=== PATIENT | female | born 1995 | race African-American/Black ===

== ENCOUNTER 2020-01-29 01:38 | Emergency (ER) | payer OTHER ==
[~2020-01-29] VITALS: Ht 157.5 cm; Wt 83.9 kg
[2020-01-29] MEDS ORDERED: PREN1TAB11 PO (01:50)
[2020-01-29] MEDS ORDERED: NS 1,000 ML IV ONE (03:00)
[2020-01-29 03:36] LABS: BASO % 0.3 % (0.0-1.0); EOS # 0.1 10^3/uL (0.0-0.5); EOS % 1.1 % (0.0-3.0); HEMATOCRIT 36.7 % (36.0-47.0); HEMOGLOBIN 12.1 g/dl (12.0-15.5); LYMPH # 2.2 10^3/uL (1.5-5.0); LYMPH % 20.6 % (24.0-44.0); MEAN CORPUSCULAR HEMOGLOBIN 30.7 pg (27.0-33.0); MEAN CORPUSCULAR VOLUME 93.1 fl (80.0-96.0); MONO # 0.6 10^3/uL (0.0-0.8); MONO % 5.2 % (0.0-5.0); NEUTROPHILS # 7.7 10^3/uL (1.5-8.5); NEUTROPHILS % 72.4 % (36.0-66.0); PLATELET COUNT, AUTOMATED 357 10^3/uL (150-450); RED BLOOD COUNT 3.94 10^6/uL (4.00-5.40); WHITE BLOOD COUNT 10.7 10^3/uL (4.0-10.0)
[2020-01-29 04:24] LABS: ALBUMIN 3.2 GM/DL (3.2-5.2); ALT/SGPT 22 U/L (12-78); BILIRUBIN,DIRECT < 0.1 MG/DL (0.0-0.2); BILIRUBIN,TOTAL 0.1 MG/DL (0.2-1.0); BLOOD UREA NITROGEN 7 MG/DL (7-18); CALCIUM LEVEL 9.2 MG/DL (8.5-10.1); CARBON DIOXIDE LEVEL 27 MEQ/L (21-32); CHLORIDE LEVEL 106 MEQ/L (98-107); GLOMERULAR FILTRATION RATE > 60.0 (>60); GLUCOSE, FASTING 90 MG/DL (70-100); HCG, SERUM QUANTITATIVE 19826 MIU/ML; LIPASE 121 U/L (73-393); POTASSIUM SERUM 4.1 MEQ/L (3.5-5.1); SODIUM LEVEL 137 MEQ/L (136-145); TOTAL PROTEIN 7.3 GM/DL (6.4-8.2)
--- NOTE | 2020-01-29 04:46 | REPVR ---
PROCEDURE INFORMATION: Exam: US Abdomen, Limited; Right Upper Quadrant Exam date and time: 01/29/2020 4:16 AM Age: 24 years old Clinical indication: Abdominal pain; Epigastric; ; Additional info: Abd pain, 16 wks preg TECHNIQUE: Imaging protocol: US abdomen. Real time ultrasound with image documentation. Limited exam focused on the right upper quadrant. COMPARISON: No relevant prior studies available. FINDINGS: Liver: The liver demonstrates no focal defects. Gallbladder: The gallbladder demonstrates no stones and no wall thickening measuring 2-3 mm. There is a negative sono Wilson's sign. Common bile duct: The CBD measures 5 mm. Pancreas: Limited visualization of the pancreas demonstrates no gross abnormalities. Portions of the head and tail are not well seen. Right kidney: The right kidney is normal measuring 10.5 cm with no hydronephrosis. IMPRESSION: Negative right upper quadrant sonogram. Electronically signed by: Deon Acevedo On 01/29/2020 04:46:26 AM
--- NOTE | 2020-01-29 04:48 | REPVR ---
PROCEDURE INFORMATION: Exam: US , Limited Exam date and time: 01/29/2020 4:16 AM Age: 24 years old Clinical indication: complicated by abdominal or pelvic pain; Right upper quadrant; Second trimester; Gestational age or lmp: 16w 1d; ; Additional info: Abd pain, 16 wks preg TECHNIQUE: Imaging protocol: Real-time ultrasound of the maternal uterus with image documentation. Exam focused on the clinical indication. COMPARISON: No relevant prior studies available. FINDINGS: Gestation: Single intrauterine fetus. heart rate: heartbeat of 146 bpm. Presentation: Cephalic presentation. Placenta: Fundal placenta. ANATOMICAL SURVEY: anatomy: The stomach and bladder are normal. MATERNAL: Uterus: Numerous uterine fibroids are noted with the largest visualized measuring 6.6 x 5.4 x 5.3 cm. IMPRESSION: 1. Single live intrauterine fetus in cephalic presentation. 2. Numerous uterine fibroids are noted measuring up to 6.6 x 5.4 x 5.3 cm. 3. Fundal placenta. Electronically signed by: Deon Acevedo On 01/29/2020 04:48:29 AM
[2020-01-29 05:58] VITALS: BP 115/78
--- NOTE | 2020-01-31 11:41 | ED PDOC ---
Post-Departure Follow-Up [facility] faxed formal report of ob us for fu France Tong MD Jan 31, 2020 11:41
== END 2020-01-29 06:07 | disposition home or self-care (01) ==
LOC: EDBD 01:38 → M ED 01:38
DX: O26.892 Other specified pregnancy related conditions, second trimester (principal); Z3A.16 16 weeks gestation of pregnancy; O34.12 Maternal care for benign tumor of corpus uteri, second trimester; O43.892 Other placental disorders, second trimester; Z79.899 Other long term (current) drug therapy

== ENCOUNTER → 2020-05-04 | Outpatient (CLI) | payer OTHER ==
[~2020-05-04] MED LIST: PREN1TAB11 PO
--- NOTE | 2020-05-04 10:48 | REP ---
INDICATION: FIBROID UTERUS; GROWTH SCAN COMPARISON: 01/29/2020 TECHNIQUE: Transabdominal obstetrical ultrasound with color Doppler evaluation. FINDINGS: Examination demonstrates a single live intrauterine in breech presentation. motion is identified by technologist. Placenta is noted posterior/fundal and grade 2 without evidence for placenta previa or abruption. Amniotic fluid volume is normal. Cervix measures 4.3 cm in length and appears closed. Known uterine fibroids measuring up to 6.6 cm maximal diameter noted. Gestational age by LMP twenty-nine weeks 6 days with CYNTHIA 07/14/2020. Gestational age by current measurements 30 weeks 5 days with CYNTHIA 07/08/2020. FHR equals 160 beats per minute. CODY: 14.4 cm (8.8-23.7) Estimated weight 1600 grams (54thpercentile). Umbilical artery SD ratio: 2.90 (1.91-4.01) IMPRESSION: Single live intrauterine in breech presentation demonstrating appropriate estimated weight and growth. <Electronically signed by Robert Rodas > 05/04/20 [id number]
== END ==
LOC: M RAD 09:44
PROVIDERS: ATTEND Registered Nurse Maternal Newborn
DX: Z34.83 Encounter for supervision of other normal pregnancy, third trimester (principal); Z3A.28 28 weeks gestation of pregnancy

== ENCOUNTER 2020-07-10 07:31 | Inpatient (IN) | payer OTHER ==
[2020-07-10] VITALS (7 sets, daily range): BP systolic 101–129; BP diastolic 55–79
[~2020-07-10] VITALS: Ht 157.5 cm; Wt 98.9 kg
[2020-07-10] MEDS ORDERED: ceFAZolin SOD 2 GM in IV 1 EA IV ONE (08:20)
[2020-07-10] MEDS ORDERED: LR 500 ML IV ONE (08:20)
[2020-07-10] MEDS ORDERED: BICITRA 30ML SOLN UDC PO ONE (08:20)
[2020-07-10 08:44] LABS: HEMATOCRIT 37.6 % (36.0-47.0); HEMOGLOBIN 12.3 g/dl (12.0-15.5); MEAN CORPUSCULAR HEMOGLOBIN 31.3 pg (27.0-33.0); MEAN CORPUSCULAR HGB CONC 32.7 g/dl (32.0-36.5); MEAN CORPUSCULAR VOLUME 95.7 fl (80.0-96.0); PLATELET COUNT, AUTOMATED 294 10^3/uL (150-450); RED BLOOD COUNT 3.93 10^6/uL (4.00-5.40); WHITE BLOOD COUNT 8.4 10^3/uL (4.0-10.0)
[2020-07-10] MEDS ORDERED: TRANEXAMIC ACID INJection 1,000 MG in NS 100 ML IV ONE (08:50)
[2020-07-10] MEDS ORDERED: BUPIVACAINE HCL 0.25% 10ML VIAL INFIL ONE (08:50)
[2020-07-10] MEDS ORDERED: OXYTOCIN INJ 10 UNITS/ML VIAL (J2590) IV ONE (08:50)
[2020-07-10] MEDS ORDERED: TRANEXAMIC ACID 100 MG/ML 10ML VIAL As Ordered ONE (09:08)
[2020-07-10] MEDS ORDERED: dexameTHASONE 4 MG/ML 1ML VIAL (J1100 PER 1MG) As Ordered ONE (09:14)
[2020-07-10] MEDS ORDERED: ONDANSETRON 4MG/2ML VIAL As Ordered ONE (09:14)
[2020-07-10] MEDS ORDERED: OXYTOCIN INJ 10 UNITS/ML VIAL (J2590) As Ordered ONE ×2 (09:14→10:13)
[2020-07-10] MEDS ORDERED: KETOROLAC 60MG 2ML VIAL As Ordered ONE (09:14)
[2020-07-10] MEDS ORDERED: MORPHINE PRES-FREE INJ 10 MG/10 ML VIAL (J2274) As Ordered ONE (09:21)
[2020-07-10] MEDS ORDERED: METOCLOPRAMIDE INJ 10MG/2ML VIAL (J2765 PER 1) IV PRN (10:03)
[2020-07-10] MEDS ORDERED: ONDANSETRON 4MG/2ML VIAL IV PRN ×2 (10:03→11:45)
[2020-07-10] MEDS ORDERED: NALOXONE INJ 0.4MG/1ML VIAL (J2310 PER 1MG) IV PRN ×2 (10:03)
[2020-07-10] MEDS ORDERED: diphenhydrAMINE 50MG/ML VIAL (J1200) IV PRN (10:03)
[2020-07-10] MEDS ORDERED: NALBUPHINE HCL 10 MG/ML AMP (J2300) IV PRN (10:03)
[2020-07-10] MEDS ORDERED: ePHEDrine SULFATE 25 MG/5 ML(5MG/ML) SYRINGE As Ordered ONE (10:07)
[2020-07-10] MEDS ORDERED: PHENYLephrine 500MCG 5ML (100MCG/ML) SYRINGE As Ordered ONE (10:08)
[2020-07-10 10:39] LABS: CORD GAS ABE A -5.1; CORD GAS HCO3 A 22.2 MEQ/L; CORD GAS O2 SAT A 90.3 %; CORD GAS PCO2 A 50.6 mmHg; CORD GAS PH A 7.261 UNITS; CORD GAS PO2 A 46.9 mmHg; CORD GAS SBC A 20.1 MEQ/L; CORD GAS TCO2 A 23.8 MEQ/L
[2020-07-10] MEDS ORDERED: METOCLOPRAMIDE INJ 10MG/2ML VIAL (J2765 PER 1) As Ordered ONE (10:39)
[2020-07-10 10:41] LABS: CORD GAS ABE V -1.4; CORD GAS HCO3 V 24.4 MEQ/L; CORD GAS O2 SAT V 93.9 %; CORD GAS PCO2 V 45.5 mmHg; CORD GAS PH V 7.348 UNITS; CORD GAS PO2 V 52.8 mmHg; CORD GAS SBC V 23.2 MEQ/L; CORD GAS TCO2 V 25.8 MEQ/L
[2020-07-10] MEDS ORDERED: OXYTOCIN 30 UNITS IN 0.9% NaCl 500ML IV BAG (J2590) As Ordered ONE (11:02)
[2020-07-10] MEDS ORDERED: DOCUSATE SODIUM 100MG CAPSULE PO PRN (11:10)
[2020-07-10] MEDS ORDERED: SIMETHICONE 80MG CHEW TAB PO PRN (11:10)
[2020-07-10] MEDS ORDERED: MOM 30ML SUSPENSION UDC PO PRN (11:10)
[2020-07-10] MEDS ORDERED: ACETAMINOPHEN 500 MG TAB PO PRN (11:10)
[2020-07-10] MEDS ORDERED: LR 1,000 ML IV SCH (11:10)
[2020-07-10] MEDS ORDERED: oxyCODONE 5MG TAB PO PRN ×2 (11:10→11:45)
[2020-07-10] MEDS ORDERED: PERCOCET 5MG/325MG TAB PO PRN (11:10)
--- NOTE | 2020-07-10 11:25 | ROOPDOC ---
[facility] Report Of Operation Report of Operation DATE OF PROCEDURE: 07/10/20 PREPROCEDURE DIAGNOSES: breech presentation, fibroid uterus, obesity POSTPROCEDURE DIAGNOSES: same PROCEDURE: primary delivery SURGEON: Ivy Salazar DO [facility] PILOT: Shira Scott CNM ANESTHESIA: epdural ESTIMATED BLOOD LOSS: Approximately 600 mL. COMPLICATIONS: none REMARKS: none PROCEDURE NOTE: The risks, benefits, and alternatives of the proceudre were discussed and written consent was obtained. The patient was taken to the OR where an epidural was placed. She was then positioned supine with a left tilt with her arms out. doptones were obtained. 2g of ancef was administered for antibiotic prophylaxis and bicitra for GI prophylaxis. SCDs were placed for DVT prophylaxis. A nunez was placed in the bladder. The abdomen was prepped and draped in a sterile fashion. The anesthesia was tested to be adequate. A final time out was performed. A pfannensteil incision was made with a scalpel and carried to the fascia. The fascia was scored and extended in a cirvilinear fashion with the curved mak scissors. The superior edge was elevated with sravanthi clamps and the muscles dissected from the fascia with blunt dissection and a scalpel. The procedure was repeated on the inferior edge. The muscles were and the peritoneum entered bluntly. The lower uterine segment was identified and a bladder flap was made with the metzambum scissors. The bladder blade was then placed. Pedunculated uterine fibroids could be palpated starting mid uterus to the fundus. A transverse hysterotomy was made in the lower uterine segment and extended bluntly. With fingers on the ASISs the baby was delivered in breech presentation. The Pinard maneuver was used to deliver the legs and [place] for the arms. The head was delivered via the Prauge maneuver. The baby had spontaneous movement, cry, and good tone. Warm dry stimulation was performed. The cord clamping was delayed 60s. It was then clamped and cut and the baby given to the pediatric team. Cord gasses and blood were obtained. TXA and 30U of pitocin were given for prevention for hemorrhage due to patient risk factors. The placenta was delivered via guy downward traction and was confirmed to be in-tact. The uterus was exteriorized and with a moist lap cleaned of debris. The hysterotomy was closed in a running locking fashion with 0-monocryl. A horizontal imbricating layer was also performed with 0-monocryl. The incision w as hemostatic on completion. The uterus had 10 pedunculated fibroids starting at the mid uterus to the funds as well as multiple subcentimeter subserosal fibroids. There was a small adhesion from the abdominal wall to a right pedunculated fibroid that was lysed with bovie cautery. The posterior cul-de-sac was cleaned of clots with a moist lap and pool suction. The hysterotomy was re-inspected to be hemostatic and the uterus was replaced. The gutters were cleansed with a moist lap and the hysterotomy remained hemostatic. The abdominal peritoneum was closed wth 0-vicryl in a running fashion. The muscles were inspected to be hemostatic. The fascia was closed with 0-vicryl in a running fashion and palpated to have no defects. The incision was irrigated and 0.25% marcaine 10cc injected at the level of the fascia. The sucutaneous layer was hemostatic with the aid of bovie cautery. 2-0 vicryl was used to close the subcutaneous tissue in a running fashion. The skin was closed with 3-0 monocryl and secured with dermabond. A uterine sweep was performed and bleeding was scant. The fundus was firm. The sponge, lap, and needle counts were correct x2 and there were no complications. The patient was transferred to recovery in stable condition. IVY SALAZAR DO July 10, 2020 11:25
[2020-07-10] MEDS ORDERED: fentaNYL 100 MCG/2 ML INJECTION (J3010) IV PRN (11:45)
[2020-07-10] MEDS: PRENATAL VITAMINS CHEWABLE TABLET PO SCH (14:02)
[2020-07-10] MEDS: ACETAMINOPHEN TAB 650MG DOSE (2X325MG) PO PRN (23:39)
[2020-07-11 02:00] VITALS: BP 133/72
[2020-07-11] MEDS: ACETAMINOPHEN TAB 650MG DOSE (2X325MG) PO PRN ×2 (05:36→11:58)
[2020-07-11 06:00] VITALS: BP 118/60
--- NOTE | 2020-07-11 06:48 | IPNPDOC ---
Progress Note Date of Service: July 11, 2020 Day#: 1 Progress Note SUBJECT: Ms. Purdy is a 24yo s/p primary for breech presentation and with a multifibroid uterus (pedunculated). She is currently post-operative day 1. She has been ambulating, voiding spontaneously without issue and tolerating regular diet. Breast feeding without issue. Reports lochia is like a normal period. Patient is ambulating well. Reports some cramping with . Denies any pain. Voiding and passing flatus without difficulty. OB PROBLEMS LIST: 1. obesity, pre- BMI 32 2. varicella non-immune 3. fibroid uterus, multiple pedunculated and subserosal 4. mild intermittent asthma and seasonal allergies OBJECTIVE: VITAL SIGNS: Within normal limits, afebrile. Alert and oriented times three. No increased WOB Heart rate: non-tachycardic Abdomen: Fundus firm at U-2 (fibroid can although be palpated as well at +2). Soft, NTTP. Pfannensteil incision is clean dry and well approximated with dermabond. [Minimal] lochia. ASSESSMENT: Ms. Purdy is a 24yo s/p primary for breech presentation and with a multifibroid uterus (pedunculated). She is currently post-operative day 1. Vitals within normal limits, afebrile, hemodynamically stable with no evidence of infection. Meeting all post-operative goals. PLAN: 1. Discharge to home likely tomorrow. 2. Tylenol and Motrin for pain. Oxycodone for breakthrough. 3. Encourage breast feeding and ambulation. 4. Undecided contraception, educated on methods, educated on close interval . 5. Routine PP visit in 2 and 6 weeks in clinic. 6. Discussed return precautions and activity limitations at length. 7. Recommended varicella vaccination. 8. Discussed fibroids, patient asked if she should have them removed. I expl ained that if they are bothersome to her (pain, discomfort, heavy periods, etc) then she could have surgery for removal. I explained that I would perform this surgery robotically with fibroid removal via a posterior colpotomy vs an open abdominal procedure. I also explained that fibroids can although form again after surgery, so if they are not too bothersome to her I would recommend waiting until childbearing complete and performing a hysterectomy which could be done minimally invasively, ie robotically. She could suppress them some in the interm with hormonal management. If they are not bothersome to her, and are not rapidly growing or showing other concerning signs of something like leiom yosarcoma or causing compromising compression in the abdomen, she could also leave them be and they will regress some in menopause. VS, I&O, 24H, Fishbone Vital Signs/I&O Vital Signs Date Time Temp Pulse Resp B/P (MAP) Pulse Ox O2 Delivery O2 Flow Rate FiO2 07/11/20 06:00 99.7 91 20 118/60 (79) 97 Room Air I&O- Last 24 Hours up to 6 AM 07/11/20 06:00 Intake Total 760 ml Output Total 1875 ml Balance -1115 ml Laboratory Data 24H LABS Laboratory Tests 2 07/10/20 08:30: Nucleated Red Blood Cells % (auto) 0.0, Syphilis Serology NONREACTIVE 07/10/20 10:31: Cord Arterial Blood pH 7.261, Cord Arterial Blood PCO2 50.6, Cord Arterial Blood PO2 46.9, Cord Arterial Blood HCO3 22.2, Cord Arterial Blood Total CO2 23.8, Cord Arterial Blood Base Excess -5.1, Cord Arterial Base Excess (Standard 20.1, Cord Arterial Bld Oxygen Saturation 90.3, Cord Venous Blood pH 7.348, Cord Venous Blood PCO2 45.5, Cord Venous Blood PO2 52.8, Cord Venous Blood HCO3 24.4, Cord Venous Blood Total CO2 25.8, Cord Venous Base Excess (Actual) -1.4, Cord Venous Base Excess (Standard) 23.2, Cord Venous Blood Oxygen Saturation 93.9 CBC/BMP Laboratory Tests 07/10/20 08:30 IVY SALAZAR DO July 11, 2020 06:48
--- NOTE | 2020-07-11 06:49 | OBDS ---
[facility] Obstetrical Discharge Sum. A/P, Post Course List any complications Ms. Purdy is a 24yo s/p primary for breech presentation and with a multifibroid uterus (pedunculated). 4150g, EBL 600, urine 100, APGARS 9/9. She has been ambulating, voiding spontaneously without issue and tolerating regular diet. Breast feeding without issue. Reports lochia is like a normal period. Patient is ambulating well. Reports some cramping with . Denies any pain. Voiding and passing flatus without difficulty. Vitals within normal limits, afebrile, hemodynamically stable with no evidence of infection. Meeting all post-operative goals. OB PROBLEMS LIST: 1. obesity, pre- BMI 32 2. varicella non-immune 3. fibroid uterus, multiple pedunculated and subserosal 4. mild intermittent asthma and seasonal allergies PLAN: 1. Discharge to home. 2. Tylenol and Motrin for pain. Oxycodone for breakthrough. 3. Encourage breast feeding and ambulation. 4. Undecided contraception, educated on methods, educated on close interval . 5. Routine PP visit in 2 and 6 weeks in clinic. 6. Discussed return precautions and activity limitations at length. 7. Recommended varicella vaccination. 8. Discussed fibroids, patient asked if she should have them removed. I explained that if they are bothersome to her (pain, discomfort, heavy periods, etc) then she could have surgery for removal. I explained that I would perform this surgery robotically with fibroid removal via a posterior colpotomy vs an open abdominal procedure. I also explained that fibroids can although form again after surgery, so if they are not too bothersome to her I would recommend waiting until childbearing complete and performing a hysterectomy which could be done minimally invasively, ie robotically. She could suppress them some in the interm with hormonal management. If they are not bothersome to her, and are not rapidly growing or showing other concerning signs of something like leiomyosarcoma or causing compromising compression in the abdomen, she could also leave them be and they will regress some in menopause. IVY SALAZAR DO July 11, 2020 06:49
[2020-07-11] MEDS: PRENATAL VITAMINS CHEWABLE TABLET PO SCH (08:14)
[2020-07-11 09:54] VITALS: BP 129/68
[2020-07-11] MEDS: IBUPROFEN 800 MG TAB PO SCH ×2 (12:11→19:55)
[2020-07-11 14:00] VITALS: BP 123/71
[2020-07-11 18:00] VITALS: BP 121/73
[2020-07-11 22:00] VITALS: BP 126/60
[2020-07-12 02:00] VITALS: BP 122/69
[2020-07-12] MEDS: IBUPROFEN 800 MG TAB PO SCH (04:36)
[2020-07-12 05:47] VITALS: BP 129/70
[2020-07-12] MEDS ORDERED: OXYC-517 PO (06:48)
[2020-07-12] MEDS ORDERED: DOK1CAP7 PO (06:48)
[2020-07-12] MEDS ORDERED: IBUP80TA PO (06:48)
[2020-07-12] MEDS: PRENATAL VITAMINS CHEWABLE TABLET PO SCH (08:10)
--- NOTE | 2020-07-12 12:41 | DSES ---
DISCHARGE SUMMARY DATE OF ADMISSION: 07/10/2020 DATE OF DISCHARGE: 07/12/2020 BRIEF HISTORY: This lady is a 24-year-old 1, now para 1, admitted for primary section because of breech presentation and pedunculated fibroid. She delivered a livebirth male weighing 9 pounds 2 ounces, 4150 gm, Apgars of 9 and 9 at one and five minutes respectively. Arterial pH 7.26, base excess -5.1, venous pH 7.34, base excess -1.4. Her admitting hemoglobin was 12.3, hematocrit 37.6 and platelets 294. On discharge her blood pressure was 129/70, respirations 17, pulse 90, temperature 98.9. Rest of examination was unremarkable. Normocephalic, atraumatic. Neck full range of motion. Pupils equal and reactive to light. Distal pulses symmetric. No evidence of DVT, PE, or superficial phlebitis. Chest is clear bilaterally at bases, no wheezes or rhonchi. No CVA tenderness. Abdomen is soft, four quadrant bowel sounds are noted. Incision is clean and dry over the bandage. Uterus is 2 below, lochia is moderate. No rashes, lesions or pruritus. No arthralgias or myalgias. No complaint of joint pain. No complaint of cough, wheeze, shortness of breath or dyspnea on exertion. No nausea, vomiting, diarrhea or constipation. No urgency or frequency. Voiding well. Passing gas and has had a bowel movement. We discussed her two week incision check and her 6 week check at [facility]. All questions were answered. 20 minute discussion. Dispensed medications are at [facility]. The patient expressed understanding. The patient was discharged improved. cc: [facility]
== END 2020-07-12 11:05 | disposition home or self-care (01) | DRG 773 ==
LOC: M LDI 07:31 → M OBS 12:54
PROVIDERS: ADMIT Obstetrics & Gynecology; ATTEND Obstetrics & Gynecology
PROC: 10D00Z1 Extraction of Products of Conception, Low, Open Approach (ICD-10-PCS; principal; 2020-07-10 09:30)
DX: O32.1XX0 Maternal care for breech presentation, not applicable or unspecified (principal); D25.9 Leiomyoma of uterus, unspecified; O34.13 Maternal care for benign tumor of corpus uteri, third trimester; Z37.0 Single live birth; O99.214 Obesity complicating childbirth; E66.9 Obesity, unspecified; J45.20 Mild intermittent asthma, uncomplicated; O99.52 Diseases of the respiratory system complicating childbirth; Z3A.39 39 weeks gestation of pregnancy